=== PATIENT | male | born 1965 | race Hispanic/Latino ===

== ENCOUNTER 2018-11-20 18:09 | Observation (INO) | payer BC ==
[~2018-11-20] VITALS: Ht 180.3 cm; Wt 100.4 kg
[~2018-11-20 18:09] MED LIST: ERYTHROMYCIN PO; KETOROLAC TROME10 MG PO; TYLENOL WITH C1 EACH PO
[2018-11-20] MEDS ORDERED: ASPIRIN 81 MG CHEW TAB PO ONE ×2 (18:30→20:30)
[2018-11-20 18:42] LABS: BASOPHILS # (AUTO) 0.1 (0.0-0.1); BASOPHILS % 0.6 % (0.0-1.0); EOSINOPHILS # (AUTO) 0.2 (0.0-0.4); EOSINOPHILS % 1.9 % (0.0-6.0); HEMOGLOBIN 14.9 g/dL (14.0-18.0); LYMPHOCYTES # (AUTO) 4.3 (1.0-3.2); LYMPHOCYTES % 45.2 % (18.0-39.1); MEAN CORPUSCULAR HEMOGLOBIN 33.8 pg (28-32); MEAN CORPUSCULAR HGB CONC 34.7 g/dL (31-35); MEAN CORPUSCULAR VOLUME 97.5 fL (81-99); MONOCYTES # (AUTO) 0.7 (0.2-0.8); MONOCYTES % 7.1 % (4.4-11.3); NEUTROPHILS # (AUTO) 4.3 (2.1-6.9); NEUTROPHILS % 44.9 % (38.7-80.0); PLATELET COUNT 174 x10e3/uL (140-360); RED BLOOD COUNT 4.41 x10e6/uL (4.3-5.7); RED CELL DISTRIBUTION WIDTH 12.8 % (11.7-14.4)
[2018-11-20 18:49] LABS: INR 0.87; PROTHROMBIN TIME 12.6 seconds (11.9-14.5)
[2018-11-20 18:50] LABS: PARTIAL THROMBOPLASTIN TIME 30.6 seconds (23.8-35.5)
[2018-11-20 18:56] LABS: ALANINE AMINOTRANSFERASE 26 IU/L (0-55); ALBUMIN 4.3 g/dL (3.5-5.0); ALBUMIN/GLOBULIN RATIO 1.5 (0.8-2.0); ALKALINE PHOSPHATASE 53 IU/L (40-150); BLOOD UREA NITROGEN 16 mg/dL (7-26); BUN/CREATININE RATIO 18 (6-25); CALCIUM 9.4 mg/dL (8.4-10.2); CARBON DIOXIDE 23 mmol/L (22-29); CHLORIDE 104 mmol/L (98-107); CREATINE KINASE 565 IU/L (30-200); CREATININE, SERUM 0.87 mg/dL (0.72-1.25); EST GLOMERULAR FILTRATION RATE > 60 ML/MIN (60-); GLUCOSE 87 mg/dL (74-118); SODIUM 139 mmol/L (136-145)
[2018-11-20 19:10] LABS: CLARITY,URINE CLEAR (CLEAR); COLOR,URINE YELLOW (YELLOW)
[2018-11-20 19:11] LABS: BACTERIA,URINE FEW /HPF; BILIRUBIN,URINE NEGATIVE (NEGATIVE); EPITHELIAL CELLS,URINE FEW /LPF; KETONES,URINE NEGATIVE (NEGATIVE); LEUKOCYTE ESTERASE ,URINE NEGATIVE (NEGATIVE); NITRITE,URINE NEGATIVE (NEGATIVE); PROTEIN,URINE DIPSTICK NEGATIVE (NEGATIVE); RBC,URINE 0-5 /HPF (0-5); URINE UROBILINOGEN 0.2 mg/dL (0.2 - 1)
--- NOTE | 2018-11-20 19:14 | Diagnostic Imaging Report ---
Examination: Single AP view of the chest. COMPARISON: None. INDICATION: Chest pain DISCUSSION: Lines/tubes: None. Lungs: The lungs are well inflated and clear. No pneumonia or pulmonary edema. Pleura: No pleural effusion or pneumothorax. Heart and mediastinum: The heart and the mediastinum are unremarkable. Bones and soft tissues: No acute bony abnormalities. IMPRESSION: 1. No acute cardiopulmonary abnormalities. Signed by: Dr. Jamir Thompson M.D. on 11/20/2018 7:11 PM
--- NOTE | 2018-11-20 19:30 | NUR ---
RECD PT RESTING COMFORTABLY IN ST AT THIS TIME, DENIES CHEST PAIN. PLAN OF CARE DISCUSSED WITH PT, VERBALIZED UNDERSTANDING. CALL LIGHT WITHIN REACH, ENCOURAGED TO CALL FOR ASSISTANCE. AWAITING BED ASSIGNMENT.
[2018-11-20] MEDS ORDERED: NITROGLYCERIN 0.4 MG SUBL SL PRN (20:30)
--- OUTSIDE RECORDS SUMMARY | 2018-11-20 21:30 | XMS REPORT ---
Author Author [facility] Address Unknown Phone Unavailable Care Team Providers Care Primary Montessori Teacher Name Role Phone Onofre VELASQUEZ Unavailable Unavailable Problems This patient has no known problems. Allergies, Adverse Reactions, Alerts This patient has no known allergies or adverse reactions. Medications This patient has no known medications. Results Test Description Test Time Test Comments Text Results Atomic Results Result Comments CHEST SINGLE (PORTABLE) 2018-11-20 19:09:00 [place] [address] Patient Name: LUCIA MELENDEZ MR #: [id number] : 1965 Age/Sex: 53/M Req #: [id number] Adm Physician: Ordered by: PARIS PRECIADO MERCHANT MARINER Report #: [id number] Location: ER Room/Bed: Procedure: [id number] DX/CHEST SINGLE (PORTABLE) Exam Date: Exam Time: REPORT STATUS: Signed Examination: Single AP view of the chest. COMPARISON: N one. INDICATION: Chest pain DISCUSSION: Lines/tubes: None. Lungs: The lungs are well inflated and clear. No pneumonia or pulmonary edema. Pleura: No pleural effusion or pneumothorax. Heart and mediastinum: The heart and the mediastinum are unremarkable. Bones and soft tissues: No acute bony abnormalities. IMPRESSION: 1. No acute cardiopulmonary abnormalities. Signed by: Dr. Teresa Ayers M.D. on 11/20/2018 7:11 PM Dictated By: TERESA AYERS MD 10 Transcribed By: ALECIA on 11/20/181910 COPY TO: PARIS PRECIADO NP
--- NOTE | 2018-11-20 23:06 | NUR ---
REPORT RECEIVED FROM ER NURSE CELESTINO. PATIENT ADMITTED IN UNIT BY STRETCHER AT 2245. PATIENT ALERT/ORIENTED X3. DENIED CHEST PAIN AT THIS TIME AND NO SOB. NO RESPIRATION DISTRESS NOTED WITH RA. PATIENT INSTRUCTED TO CALL FOR HELP NEEDED.BED IN LOWER POSITION.CALL [place] WITHIN REACH. WILL CONTINUE TO MONITOR.
[2018-11-20 23:15] VITALS: BP 106/65
[2018-11-20 23:16] VITALS: BP 106/65
[2018-11-20 23:17] VITALS: BP 106/65
[2018-11-21] VITALS (8 sets, daily range): BP systolic 106–152; BP diastolic 62–69
[2018-11-21 03:53] LABS: CREATINE KINASE 441 IU/L (30-200)
[2018-11-21 06:30] LABS: CHOL/HDL RATIO 4.4 (3.9-4.7)
--- NOTE | 2018-11-21 06:40 | NUR ---
rounded with fast food shift supervisor nurse, patient aware of change and in no distress. Call hardin within reach and bed in lowest position.
--- NOTE | 2018-11-21 07:16 | NUR ---
Report given to AM MARIA M Stacy,walking round done.
[2018-11-21] MEDS: ASPIRIN 325 MG TAB EC PO SCH (08:18)
[2018-11-21 11:35] LABS: CREATINE KINASE 418 IU/L (30-200)
--- NOTE | 2018-11-21 12:02 | NUR ---
patient leaving floor via wheelchair for stress test, patient alert and oriented and in stable condition.
--- NOTE | 2018-11-21 12:47 | NUR ---
SOCIAL WORK INITIAL ASSESSMENT Powerhouse Mechanic to bedside to discuss plan of care with patient/family. CM/SW role and care transitions discussed. Anticipated discharge plan discussed along with duration of care. CM/SW discussed patients right to make decisions in care. CM/SW work hours given. Patient lives: IN HOUSE WITH FAMILY Admit/Transfer: VIA ED POA/Emergency contact: SADE [phone] Current/Previous Home Health: NONE PCP/Follow-up Care: Robyn DYSON Current/Previous DME:NONE Other Services: [facility] Employment Status: [employer]EST ENG[employer] Areas of Concerns: NONE Referral Needs: NONE Education Needs: NONE IMM/VALDEZ given and signed (if applicable): NA Goal for discharge: RETURN HOME CM/SW left business card at the bedside with contact information. Name and number was also written on the patients whiteboard. Patient verbalized understanding of discussion. CM will follow-up with ongoing discharge and transition of care needs.
--- NOTE | 2018-11-21 12:48 | NUR ---
POST DISCHARGE STATUS FORM FILED IN FRONT OF CHART NO NEEDS
[2018-11-21] MEDS ORDERED: PANTOPRAZOLE SOD 40 MG TABEC PO ONE (13:15)
--- NOTE | 2018-11-21 13:47 | History and Physical ---
CHIEF COMPLAINT: Chest pain. HPI: This is a 53-year-old male with a past medical history of hyperlipidemia. He was in his usual state of health until the patient came to my office yesterday for chest pain, retrosternal, upper back pain. No radiation to the left upper extremity or sweating. No shortness of breath. No history of GERD. No diarrhea. No constipation. No leg pain. No leg swelling. No hematemesis. No melena. PAST MEDICAL HISTORY: Kidney stone. PAST SURGICAL HISTORY: History of right knee surgery. ALLERGIES: ALLERGIC TO PENICILLIN; ANAPHYLACTIC REACTION. SOCIAL HISTORY: Patient is and lives with his . HABITS: Denies smoking. Denies alcohol. Denies illicit drug use. MEDICATIONS: None. REVIEW OF SYSTEMS GENERAL: Fatigue and weakness. HEENT: No diplopia. No blurring of vision. CARDIOPULMONARY: Has some chest pain. No palpitations. No shortness of breath. ALIMENTARY SYSTEM: Nausea and vomiting. No diarrhea. No constipation. GENITOURINARY: No dysuria, no hematuria. MUSCULOSKELETAL: No joint pain. CENTRAL NERVOUS SYSTEM: No focal weakness. EKG: Nonspecific ST-T changes, 72 per minute. Chest x-ray is normal. Urine is normal. Chemistries: Sodium, potassium and LFTs are normal. CK 565, CK-MB 4.80. Troponin is less than 0.001. BNP is normal. Lipid panel is normal. CBC is normal. ASSESSMENT 1. Chest pain, rule out angina, rule out unstable angina, rule out coronary artery disease. 2. Hyperlipidemia. PLAN: Admit to telemetry. I already consulted Dr. Lopez. Nuclear stress test and echocardiogram. Further treatment as per cardiology. Job#: [id number]
--- NOTE | 2018-11-21 13:48 | NUR ---
patient returned to floor via wheelchair. Patient alert and oriented and in no distress
[2018-11-21] MEDS: SODIUM CHLORIDE 0.9% 1000ML 1,000 ML IV SCH ×2 (14:11→23:59)
--- NOTE | 2018-11-21 14:37 | Cardiology Report ---
DATE OF STUDY: November 21, 2018 EXERCISE NUCLEAR STRESS TEST INDICATIONS: Coronary artery disease, unstable angina. Patient was stressed using a standard Jah treadmill protocol. Rest and stress Myoview imaging was performed. Resting electrocardiogram is normal. No EKG changes were noted during exercise or recovery. The patient did complain of mild, qag-[id number]-[id number] chest pain during exercise, which resolved during recovery. No arrhythmias. Nuclear imaging at rest is normal. Nuclear imaging at stress shows mild decrease in tracer uptake in the inferior zones of the left ventricle, normal LV systolic function. CONCLUSIONS 1. Normal electrocardiographic hemodynamic stress test. 2. Abnormal clinical treadmill stress test with exertional angina. 3. Abnormal myocardial perfusion study with mild inferior ischemia. 4. Normal left ventricular systolic function of 63%. Job#: [id number]
--- NOTE | 2018-11-21 15:12 | Consultation ---
DATE OF CONSULTATION: November 21, 2018 CARDIOLOGY CONSULTATION INDICATION: Chest pain. Mr. Mccain is a 53-year-old gentleman with history of hypertension who comes in complaining of chest pain mostly on exertion. This chest pain was retrosternal with heaviness as well as radiation to his jaw and arm. He was seen by Dr. Cervantes and sent to the emergency room for further evaluation. PAST MEDICAL HISTORY: As listed above. SOCIAL HISTORY: Patient does not smoke or drink. DRUG ALLERGIES: PENICILLIN. REVIEW OF SYSTEMS: Negative except as dictated in the history of present illness. PHYSICAL EXAMINATION VITALS: Afebrile, heart rate 59, blood pressure 115/69, O2 sat 98%. CARDIOVASCULAR: Regular rhythm, S4 gallop. LUNGS: Clear to auscultation bilaterally. ABDOMEN: Soft. Bowel sounds heard adequately. LABS: Cardiac troponin is negative x3. BNP level is normal. LDL 115. Remaining labs are normal. ASSESSMENT: Unstable angina. RECOMMENDATIONS: Rule out a myocardial infarction by recheck of cardiac enzymes. Further risk stratification with echocardiogram and exercise nuclear stress test. I thank Dr. Cervantes for this consult. Job#: [id number]
--- NOTE | 2018-11-21 18:58 | NUR ---
walking rounds made with police shift commander nurse, patient alert and oriented and aware of change. Call hardin within reach and bed in lowest position.
[2018-11-22 00:19] VITALS: BP 105/58
[2018-11-22 04:27] VITALS: BP 104/62
[2018-11-22 05:52] LABS: ANION GAP 12.4 mmol/L (8-16); BLOOD UREA NITROGEN 15 mg/dL (7-26); BUN/CREATININE RATIO 18 (6-25); CALCIUM 8.5 mg/dL (8.4-10.2); CARBON DIOXIDE 22 mmol/L (22-29); CHLORIDE 107 mmol/L (98-107); CREATINE KINASE 371 IU/L (30-200); CREATININE, SERUM 0.84 mg/dL (0.72-1.25); EST GLOMERULAR FILTRATION RATE > 60 ML/MIN (60-); GLUCOSE 110 mg/dL (74-118); POTASSIUM 4.4 mmol/L (3.5-5.1); SODIUM 137 mmol/L (136-145)
--- NOTE | 2018-11-22 06:50 | NUR ---
rounded with overnight caregiver nurse, patient aware of change and in no distress. Call hardin within reach and bed in lowest position.
[2018-11-22 07:20] VITALS: BP 121/60
[2018-11-22 07:47] VITALS: BP 121/60
[2018-11-22] MEDS: ASPIRIN 325 MG TAB EC PO SCH (08:21)
[2018-11-22] MEDS ORDERED: PANTOPRAZOLE SO40 MG PO (11:46)
[2018-11-22 12:02] VITALS: BP 114/68
--- NOTE | 2018-11-22 12:08 | NUR ---
discharge instructions given to patient and at this time, both verbalized understanding. IV discontinued at this time, catheter in tact and small dressing applied. Patient refused wheelchair and will be ambulating from the floor with assistance. Patient alert and oriented and in stable condition. to drive patient home in personal vehicle
== END 2018-11-22 12:08 | disposition home or self-care (01) ==
LOC: ER 18:09 → ERHOLD 21:28 → IMCU 22:47
PROVIDERS: ADMIT Internal Medicine; ATTEND Internal Medicine
DX: I20.0 Unstable angina (principal); E78.5 Hyperlipidemia, unspecified; I10 Essential (primary) hypertension; R68.84 Jaw pain; Z87.442 Personal history of urinary calculi; Z88.0 Allergy status to penicillin
CPT/HCPCS: 36415 ×3; 71045; 78452; 80048; 80053; 80061; 81001; 82550 ×3; 82553 ×2; 83880; 84484 ×2; 85025; 85610; 85730; 87086; 93005; 93017; 93306; 96361 ×2; 99284; A9502; G0378 ×3; J7030; S0164; 96360

== ENCOUNTER → 2018-12-21 | Day surgery (SDC) | payer BC ==
--- NOTE | 2018-12-20 16:00 | NUR ---
Sowmya Avelar Nurse Practitioner notified of patient has no labs ordered for procedure LH. Sowmya Avelar Nurse Practitioner ordered CBC, CMP, PT/INR.
--- NOTE | 2018-12-20 16:01 | NUR ---
Sowmya Avelar Nurse Practitioner notified patient reported possible tooth infection and patient has been on antibiotics "for about a week" Sowmya Avelar Nurse Practitioner stated ok to continue with Left Heart Catheterization procedure.
[2018-12-20 16:29] LABS: BASOPHILS # (AUTO) 0.1 (0.0-0.1); BASOPHILS % 0.8 % (0.0-1.0); EOSINOPHILS # (AUTO) 0.3 (0.0-0.4); EOSINOPHILS % 3.7 % (0.0-6.0); HEMATOCRIT 44.5 % (38.2-49.6); HEMOGLOBIN 15.2 g/dL (14.0-18.0); LYMPHOCYTES # (AUTO) 4.1 (1.0-3.2); LYMPHOCYTES % 44.7 % (18.0-39.1); MEAN CORPUSCULAR HEMOGLOBIN 33.9 pg (28-32); MEAN CORPUSCULAR HGB CONC 34.2 g/dL (31-35); MEAN CORPUSCULAR VOLUME 99.3 fL (81-99); MONOCYTES # (AUTO) 0.6 (0.2-0.8); MONOCYTES % 6.8 % (4.4-11.3); NEUTROPHILS % 43.9 % (38.7-80.0); PLATELET COUNT 182 x10e3/uL (140-360); RED BLOOD COUNT 4.48 x10e6/uL (4.3-5.7); RED CELL DISTRIBUTION WIDTH 12.5 % (11.7-14.4)
[2018-12-20 16:51] LABS: ALANINE AMINOTRANSFERASE 28 IU/L (0-55); ALBUMIN 4.2 g/dL (3.5-5.0); ALBUMIN/GLOBULIN RATIO 1.6 (0.8-2.0); ALKALINE PHOSPHATASE 55 IU/L (40-150); BLOOD UREA NITROGEN 16 mg/dL (7-26); BUN/CREATININE RATIO 19 (6-25); CALCIUM 8.5 mg/dL (8.4-10.2); CARBON DIOXIDE 24 mmol/L (22-29); CHLORIDE 105 mmol/L (98-107); CREATININE, SERUM 0.83 mg/dL (0.72-1.25); EST GLOMERULAR FILTRATION RATE > 60 ML/MIN (60-); GLUCOSE 81 mg/dL (74-118); SODIUM 137 mmol/L (136-145)
[2018-12-20 17:09] LABS: INR 0.86; PROTHROMBIN TIME 12.2 seconds (11.9-14.5)
[~2018-12-21] VITALS: Ht 180.3 cm; Wt 102.1 kg
[2018-12-21] VITALS (10 sets, daily range): BP systolic 114–138; BP diastolic 57–91
[~2018-12-21] MED LIST changes: +ALPRAZOLAM 0.5 MG TAB ONE; +ASPIR 8181 MG PO; +CEPHALEXIN250 MG PO; +DIPHENHYDRAMINE HCL 25 MG CAP ONE; +FENTANYL CITRATE/PF 100MCG/2 ML INJ ONE; +HEPARIN SOD (PORCINE) 1000 UNIT/ML 30ML ONE; +HEPARIN SOD/SOD CHLORIDE 2,000 ML ONE; +IOPAMIDOL 370 MG/ML 200 ML INFUS..BTL INJ ONE; +LEXAPRO10 MG PO; +LIDOCAINE HCL 2% LOCAL 20 ML VIAL ONE; +MIDAZOLAM HCL 2 MG/2 ML VIAL ONE; +NITROGLYCERIN/D5W 200 MCG/ML 250 ML ONE; +PANTOPRAZOLE SO40 MG PO; +SODIUM CHLORIDE 0.9% 1000ML 1,000 ML ONE; +VERAPAMIL HCL 2.5 MG/ML 2 ML VIAL ONE
--- NOTE | 2018-12-21 16:15 | NUR ---
1615 Received pt to rec Rm #9 Identiferx2. [facility] Report from Geoffrey FRANZ .Pt Drowsy but easily aroused. Maintains airway and room saturation on room air 100% Iv infusing well w/o s/s infiltration lt hand #20. No gross issues of pain,pallor,presser or dysrhythmia. Abdomen soft and non tender denies necessity to defecate or urinate.Bilateral PPx4 Tr band intact and titration time scheduled at 1700pm. Dr Lopez spoke with family and POC discussed with discharge instructions given to family with copies. at bedside call light and bed in low position with side rails up. ds/rn
--- NOTE | 2018-12-21 18:00 | NUR ---
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 Coban dressing sterile 2x2 and Tegaderm and wrist splint in place.Pt tolerating po intake and has copies of dc papers. Assist to car per [facility] employee per w/c. stable Vs and ekg Denies CP or SOB. ds/rn
--- NOTE | 2018-12-22 00:08 | Operative Report ---
DATE OF PROCEDURE: 12/21/2018 SURGEON: Cecilio Lopez MD PROCEDURES PERFORMED: 1. Left heart catheterization, selective coronary angiography, and left ventriculography. 2. Deployment of right wrist TR band. COMPLICATIONS: None. RECOMMENDATIONS: Medical therapy. DESCRIPTION OF PROCEDURE: Access obtained in the right radial artery. A 5-[place]gu[place] sheath was placed. Diagnostic coronary angiogram revealed no angiographic coronary artery disease. Excellent flow in all vessels. No critical stenosis or occlusions. LV ejection fraction is 65%. LV end-diastolic pressure of 8. No gradient across aortic valve on pullback. Right wrist guide and sheath removed. TR band applied. The patient discharged home same day. Cecilio Lopez MD KSB/MODL /[id number]
== END | disposition home or self-care (01) ==
LOC: CATH LAB 11:28
PROVIDERS: ATTEND Internal Medicine Interventional Cardiology
DX: I25.10 Atherosclerotic heart disease of native coronary artery without angina pectoris (principal); R94.39 Abnormal result of other cardiovascular function study; I73.9 Peripheral vascular disease, unspecified; I10 Essential (primary) hypertension; R01.1 Cardiac murmur, unspecified; I34.1 Nonrheumatic mitral (valve) prolapse; F17.200 Nicotine dependence, unspecified, uncomplicated; Z88.0 Allergy status to penicillin; Z01.812 Encounter for preprocedural laboratory examination; Z79.82 Long term (current) use of aspirin; Z68.31 Body mass index [BMI] 31.0-31.9, adult; Z96.659 Presence of unspecified artificial knee joint; Z82.49 Family history of ischemic heart disease and other diseases of the circulatory system
CPT/HCPCS: 36415; 80053; 85025; 85610; 93458; C1769; C1887; J1644; J2001; J2250; J7030; Q9967